=== PATIENT | female | born 2000 | race Two or more races ===

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

== ENCOUNTER 2018-12-30 22:50 | Emergency (ER) | payer MEDICAID ==
[2018-12-30 23:29] VITALS: BP 113/71
--- NOTE | 2018-12-30 23:47 | EDM.PDOC ---
ED HPI GENERAL MEDICAL PROBLEM - General Chief Complaint: GAMING HOST Problem Stated Complaint: BLEEDING NOT Time Seen by Provider: 12/30/18 22:50 Source of Information: Reports: Patient, Family History Limitations: Reports: No Limitations - History of Present Illness INITIAL COMMENTS - FREE TEXT/NARRATIVE: 18 y.o.w.f cam to the ed 4 days after after she last nl menstrual period 2018, took plan B 2-3 days ago, period started yesterday. No pain, no N/V/D or any other acute medical issues. BP 113/71 Pulse 77 RR 15 Pulse ox 100% on RA Temp 36.6 Onset Date: 12/29/18 Onset Time: 09:00 Duration: Day(s):, Constant Location: Reports: Pelvis Quality: Reports: Same as Previous Episode Severity: Moderate Improves with: Reports: None Worsens with: Reports: None Context: Reports: Other (last nl menstrual peiod 12/03/2018, took plan B 2-3 days ago, period started yesterday) Associated Symptoms: Reports: No Other Symptoms - Related Data Allergies Allergy/AdvReac Type Severity Reaction Status Date / Time acetaminophen [From Tylenol] Allergy Mild Hives Verified 12/30/18 23:10 Home Meds: Home Meds NK [No Known Home Meds] 12/30/18 [History] Past Medical History - Past Health History Medical/Surgical History: Denies Medical/Surgical History 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 Psychiatric History: Reports: ADHD, Addiction, Anxiety, Bipolar, Depression, Emotional Problems, Mood Swings, PTSD, Schizophrenia, Suicide Attempt - Infectious Disease History Infectious Disease History: Reports: Chicken Pox - Past Surgical History HEENT Surgical History: Reports: Other (See Below) Other HEENT Surgeries/Procedures: states that she had stitches at her lip and nose due to a dog bite. Social & Family History - Family History Family Medical History: Noncontributory Respiratory: Reports: Asthma Psychiatric: Reports: Anxiety, Depression - Tobacco Use Smoking Status *Q: Former Smoker Years of Tobacco use: 7 Packs/Tins Daily: 0.3 Used Tobacco, but Quit: No - Caffeine Use Caffeine Use: Reports: Coffee, Soda - Recreational Drug Use Recreational Drug Use: No ED ROS GENERAL - Review of Systems Review Of Systems: See Below Constitutional: Reports: No Symptoms HEENT: Reports: No Symptoms Respiratory: Reports: No Symptoms Cardiovascular: Reports: No Symptoms Endocrine: Reports: No Symptoms GI/Abdominal: Reports: No Symptoms : Reports: No Symptoms Musculoskeletal: Reports: No Symptoms Skin: Reports: No Symptoms Neurological: Reports: No Symptoms Psychiatric: Reports: No Symptoms Hematologic/Lymphatic: Reports: No Symptoms Immunologic: Reports: No Symptoms ED EXAM - Physical Exam Exam: See Below Exam Limited By: No Limitations General Appearance: Alert, WD/WN, No Apparent Distress Eye Exam: Bilateral Eye: Normal Inspection Ears: Normal External Exam Nose: Normal Inspection Throat/Mouth: Other (lip pircing) Head: Atraumatic, Normocephalic Neck: Normal Inspection Respiratory/Chest: No Respiratory Distress Cardiovascular: Normal Peripheral Pulses GI/Abdominal Exam: Normal Bowel Sounds Rectal Exam: Deferred (Female) Exam: Deferred for Placenta Previa Back Exam: Normal Inspection Extremities: Normal Inspection Neurological: Alert, Oriented, CN II-XII Intact, Normal Cognition, Normal Gait Psychiatric: Normal Affect, Normal Mood Skin Exam: Warm, Dry, Normal Color Lymphatic: No Adenopathy Course - Vital Signs Text/Narrative:: 18 y.o.w.f cam to the ed 4 days after after she last nl menstrual period 2018, took plan B 2-3 days ago, period started yesterday. No pain, no N/V/D or any other acute medical issues. BP 113/71 Pulse 77 RR 15 Pulse ox 100% on RA Temp 36.6 PE; WNWD WF with on her menstrual period. pelvic exam was deferred. Impression: test neg Tx: none Took Plan B 2-3 days ago Reexam: Nl menstrual period coming earlier due to using Plan B Plan: D/C with instruction Last Recorded V/S: Last Vital Signs Temp 36.9 C 12/30/18 22:55 Pulse 71 12/30/18 22:55 Resp 15 12/30/18 22:55 BP 113/71 12/30/18 22:55 Pulse Ox 99 12/30/18 22:55 - Orders/Labs/Meds Labs: Laboratory Tests 12/30/18 12/30/18 Range/Units 23:01 23:01 Urine Color Yellow (YELLOW) Urine Appearance Slightly cloudy (CLEAR) Urine pH 6.0 (5.0-6.5) Ur Specific [place] 1.030 H (1.010-1.025) Urine Protein Negative (NEGATIVE) mg/dL Urine Glucose (UA) Normal (NORMAL) mg/dL Urine Ketones Negative (NEGATIVE) mg/dL Urine Occult Blood Large H (NEGATIVE) Urine Nitrite Negative (NEGATIVE) Urine Bilirubin Negative (NEGATIVE) Urine Urobilinogen 1 H (NEGATIVE) mg/dL Ur Leukocyte Esterase Negative (NEGATIVE) Urine RBC 5-10 H (0-5) Urine WBC 0-5 (0-5) Ur Squamous Epith Cells Moderate H (NS,R,O) Urine Bacteria Few H (NS) Urine HCG, Qual Negative (NEGATIVE) Departure - Departure Time of Disposition: 23:42 Disposition: Home, Self-Care 01 Condition: Good Clinical Impression: Menstrual periods, abnormal - Discharge Information Instructions: Emergency Contraception Referrals: PCP,None [Primary Care Provider] - Forms: ED Department Discharge Additional Instructions: This is most likely your Nl menstrual period starting early due to using plan B , which is influencing your menstruation. Please f/u with your GAMING HOST if needed.
== END 2018-12-30 23:51 | disposition home or self-care (01) ==
LOC: FB.ED 22:50
DX: N92.6 Irregular menstruation, unspecified (principal); Z88.8 Allergy status to other drugs, medicaments and biological substances; Z87.891 Personal history of nicotine dependence
CPT/HCPCS: 81001; 81025; 99284

== ENCOUNTER 2020-04-26 19:40 | Emergency (ER) | payer SELFPAY ==
[2020-04-26 19:51] VITALS: BP 127/67; PULSE 86
--- NOTE | 2020-04-26 20:00 | EDM.PDOC ---
ED HPI GENERAL MEDICAL PROBLEM - General Chief Complaint: Allergic Reaction Stated Complaint: ALLERGIC REACTION Time Seen by Provider: 04/26/20 19:55 Source of Information: Reports: Patient History Limitations: Reports: No Limitations - History of Present Illness INITIAL COMMENTS - FREE TEXT/NARRATIVE: Patient presented to the ED because of an insect bite on the right intraorbital area and left leg. She took benadryl but it is still swollen. 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 Psychiatric History: Reports: ADHD, Addiction, Anxiety, Bipolar, Depression, Emotional Problems, Mood Swings, PTSD, Schizophrenia, Suicide Attempt - Infectious Disease History Infectious Disease History: Reports: Chicken Pox - Past Surgical History HEENT Surgical History: Reports: Other (See Below) Other HEENT Surgeries/Procedures: states that she had stitches at her lip and nose due to a dog bite. Social & Family History - Family History Family Medical History: Noncontributory Respiratory: Reports: Asthma Psychiatric: Reports: Anxiety, Depression - Caffeine Use Caffeine Use: Reports: Coffee, Soda ED ROS ALLERGIC REACTION - Review of Systems Review Of Systems: See Below Constitutional: Reports: No Symptoms HEENT: Reports: No Symptoms Respiratory: Reports: No Symptoms Cardiovascular: Reports: No Symptoms GI/Abdominal: Reports: No Symptoms Musculoskeletal: Reports: No Symptoms Skin: Reports: No Symptoms Neurological: Reports: No Symptoms Psychiatric: Reports: No Symptoms ED EXAM GENERAL NO PERIP PULSE - Physical Exam Exam: See Below Exam Limited By: No Limitations General Appearance: Alert, No Apparent Distress Ears: Normal External Exam, Normal Canal Throat/Mouth: Normal Inspection, Normal Lips Head: Atraumatic, Normocephalic Respiratory/Chest: No Respiratory Distress, Lungs Clear, Normal Breath Sounds, No Accessory Muscle Use Cardiovascular: Normal Peripheral Pulses, Regular Rate, Rhythm, No Edema, No Gallop GI/Abdominal: Normal Bowel Sounds, Soft, Non-Tender, No Organomegaly Extremities: Normal Inspection, Normal Range of Motion Skin Exam: Warm, Other (swelling over the right infraorbital area, wheals on left leg.) Course - Vital Signs Text/Narrative:: reassurance Last Recorded V/S: Last Vital Signs Temp 36.8 C 04/26/20 19:50 Pulse 86 04/26/20 19:50 Resp 17 04/26/20 19:50 BP 127/67 04/26/20 19:50 Pulse Ox 100 04/26/20 19:50 Departure - Departure Time of Disposition: 20:00 Disposition: Home, Self-Care 01 Condition: Good Clinical Impression: Insect bite - Discharge Information Prescriptions: predniSONE [Prednisone] 20 mg PO DAILY #5 tablet Instructions: Insect Bite, Adult Referrals: PCP,None [Primary Care Provider] - Forms: ED Department Discharge Additional Instructions: Please read discharge instructions on insect bite apply ice take benadryl 25 mg every 4-6 hours as needed for itching prednisone 20 mg every morning for 5 days Follow up as needed Sepsis Event Note (ED) - Evaluation Sepsis Screening Result: No Definite Risk - Focused Exam Vital Signs: Vital Signs Temp Pulse Resp BP Pulse Ox 04/26/20 19:50 36.8 C 86 17 127/67 100
== END 2020-04-26 20:05 | disposition home or self-care (01) ==
LOC: FB.ED 19:40
DX: S00.86XA Insect bite (nonvenomous) of other part of head, initial encounter (principal); S80.862A Insect bite (nonvenomous), left lower leg, initial encounter; Z88.6 Allergy status to analgesic agent; W57.XXXA Bitten or stung by nonvenomous insect and other nonvenomous arthropods, initial encounter
CPT/HCPCS: 99281

== ENCOUNTER 2020-12-04 22:47 | Emergency (ER) | payer MEDICAID ==
--- NOTE | 2020-12-04 23:24 | EDM.PDOC ---
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 Psychiatric History: Reports: ADHD, Addiction, Anxiety, Bipolar, Depression, Emotional Problems, Mood Swings, PTSD, Schizophrenia, Suicide Attempt - Infectious Disease History Infectious Disease History: Reports: Chicken Pox - Past Surgical History HEENT Surgical History: Reports: Other (See Below) Other HEENT Surgeries/Procedures: states that she had stitches at her lip and nose due to a dog bite. Social & Family History - Family History Family Medical History: No Pertinent Family History Respiratory: Reports: Asthma Psychiatric: Reports: Anxiety, Depression - Caffeine Use Caffeine Use: Reports: Coffee, Soda Course - Vital Signs Last Recorded V/S: Last Vital Signs Temp 36.7 C 12/04/20 22:50 Pulse 104 H 12/04/20 22:50 Resp 15 12/04/20 22:50 BP 120/55 L 12/04/20 22:50 Pulse Ox 98 12/04/20 22:50 - Orders/Labs/Meds Orders: Active Orders 24 hr Category Date Time Status Abdomen Pelvis w Cont [CT] Stat Exams 12/04/20 23:14 Ordered AMYLASE [CHEM] Stat Lab 12/04/20 23:14 Ordered CBC WITH AUTO DIFF [HEME] Stat Lab 12/04/20 23:14 Ordered CHLAMYDIA/GC AMPLIFICATION Routine Lab 12/04/20 23:11 Ordered COMPREHENSIVE METABOLIC PN,CMP [CHEM] Stat Lab 12/04/20 23:14 Ordered LIPASE [CHEM] Stat Lab 12/04/20 23:14 Ordered Sodium Chloride 0.9% [Normal Saline] 1,000 ml Med 12/04/20 23:15 Active IV ASDIRECTED Medication Orders Sodium Chloride (Normal Saline) 1,000 mls @ 999 mls/hr IV ASDIRECTED ROMELIA Labs: Laboratory Tests 12/04/20 12/04/20 Range/Units 22:55 22:55 Urine Color Yellow (YELLOW) Urine Appearance Slightly cloudy (CLEAR) Urine pH 6.5 (5.0-6.5) Ur Specific [place] 1.010 (1.010-1.025) Urine Protein Negative (NEGATIVE) mg/dL Urine Glucose (UA) Normal (NORMAL) mg/dL Urine Ketones Negative (NEGATIVE) mg/dL Urine Occult Blood Negative (NEGATIVE) Urine Nitrite Negative (NEGATIVE) Urine Bilirubin Negative (NEGATIVE) Urine Urobilinogen 1 H (NEGATIVE) mg/dL Ur Leukocyte Esterase Large H (NEGATIVE) Urine RBC 5-10 H (0-5) Urine WBC 10-20 H (0-5) Ur Squamous Epith Cells Moderate H (NS,R,O) Urine Bacteria Few H (NS) Urine HCG, Qual Negative (NEGATIVE) Meds: Medications Generic Name Dose Route Start Last Admin Trade Name Freq PRN Reason Stop Dose Admin Sodium Chloride 1,000 mls @ 999 mls/hr 12/04/20 23:15 Normal Saline IV ASDIRECTED ROMELIA Discontinued Medications Generic Name Dose Route Start Last Admin Trade Name Freq PRN Reason Stop Dose Admin Cephalexin 500 mg 12/04/20 23:25 Cephalexin 500 Mg Cap PO 12/04/20 23:26 NOW STA Departure - Departure Time of Disposition: 23:15 Disposition: Home, Self-Care 01 Condition: Good - Discharge Information Prescriptions: cephALEXin [Keflex] 500 mg PO Q8H #30 cap Referrals: David Pedroza MD [Primary Care Provider] - Forms: ED Department Discharge Sepsis Event Note (ED) - Evaluation Sepsis Screening Result: No Definite Risk - Focused Exam Vital Signs: Vital Signs Temp Pulse Resp BP Pulse Ox 12/04/20 22:50 36.7 C 104 H 15 120/55 L 98 - My Orders Last 24 Hours: My Active Orders 12/04/20 23:11 CHLAMYDIA/GC AMPLIFICATION Routine 12/04/20 23:14 Abdomen Pelvis w Cont [CT] Stat AMYLASE [CHEM] Stat CBC WITH AUTO DIFF [HEME] Stat COMPREHENSIVE METABOLIC PN,CMP [CHEM] Stat LIPASE [CHEM] Stat 12/04/20 23:15 Sodium Chloride 0.9% [Normal Saline] 1,000 ml IV ASDIRECTED - Assessment/Plan Last 24 Hours: My Active Orders 12/04/20 23:11 CHLAMYDIA/GC AMPLIFICATION Routine 12/04/20 23:14 Abdomen Pelvis w Cont [CT] Stat AMYLASE [CHEM] Stat CBC WITH AUTO DIFF [HEME] Stat COMPREHENSIVE METABOLIC PN,CMP [CHEM] Stat LIPASE [CHEM] Stat 12/04/20 23:15 Sodium Chloride 0.9% [Normal Saline] 1,000 ml IV ASDIRECTED
[2020-12-04] MEDS: Sodium Chloride 0.9% 1,000 ML IV SCH (23:30)
--- NOTE | 2020-12-04 23:58 | EDM.PDOC ---
ED HPI GENERAL MEDICAL PROBLEM - General Chief Complaint: Genitourinary Problem Stated Complaint: SIDE PAIN Time Seen by Provider: 12/04/20 22:50 Source of Information: Reports: Patient History Limitations: Reports: No Limitations - History of Present Illness INITIAL COMMENTS - FREE TEXT/NARRATIVE: Patient presented to the ED because of Left Lower Quadrat pain which started 2 d ays ago. The pain is sharp and cramping,7/10. there is no n/v/d. There is no fever,chills or urinary symptoms. 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 Psychiatric History: Reports: ADHD, Addiction, Anxiety, Bipolar, Depression, Emotional Problems, Mood Swings, PTSD, Schizophrenia, Suicide Attempt - Infectious Disease History Infectious Disease History: Reports: Chicken Pox - Past Surgical History HEENT Surgical History: Reports: Other (See Below) Other HEENT Surgeries/Procedures: states that she had stitches at her lip and nose due to a dog bite. Social & Family History - Family History Family Medical History: No Pertinent Family History Respiratory: Reports: Asthma Psychiatric: Reports: Anxiety, Depression - Caffeine Use Caffeine Use: Reports: Coffee, Soda ED ROS GENERAL - Review of Systems Review Of Systems: See Below Constitutional: Reports: No Symptoms HEENT: Reports: No Symptoms Respiratory: Reports: No Symptoms Cardiovascular: Reports: No Symptoms Endocrine: Reports: No Symptoms GI/Abdominal: Reports: Abdominal Pain : Reports: No Symptoms Musculoskeletal: Reports: No Symptoms Skin: Reports: No Symptoms Neurological: Reports: No Symptoms ED EXAM, GI/ABD - Physical Exam Exam: See Below Exam Limited By: No Limitations General Appearance: Alert, No Apparent Distress Ears: Normal External Exam, Normal Canal Nose: Normal Inspection, Normal Mucosa Throat/Mouth: Normal Inspection, Normal Lips Head: Atraumatic, Normocephalic Neck: Normal Inspection, Supple, Non-Tender, Full Range of Motion Respiratory/Chest: No Respiratory Distress, Lungs Clear, Normal Breath Sounds, No Accessory Muscle Use, Chest Non-Tender Cardiovascular: Normal Peripheral Pulses, Regular Rate, Rhythm, No Edema, No Gallop, No JVD, No Murmur GI/Abdominal Exam: Normal Bowel Sounds, Soft, Other (tenderness LLQ) Back Exam: Normal Inspection Extremities: Normal Inspection Neurological: Alert, Oriented, CN II-XII Intact Course - Vital Signs Text/Narrative:: Labs/CT abd/pelvis result was discussed with patient NS 1 L Bolus Bactrim DS 1 PO x1 Last Recorded V/S: Last Vital Signs Temp 36.7 C 12/04/20 22:50 Pulse 104 H 12/04/20 22:50 Resp 15 12/04/20 22:50 BP 120/55 L 12/04/20 22:50 Pulse Ox 98 12/04/20 22:50 - Orders/Labs/Meds Orders: Active Orders 24 hr Category Date Time Status Abdomen Pelvis w Cont [CT] Stat Exams 12/04/20 23:14 Taken CHLAMYDIA/GC AMPLIFICATION Routine Lab 12/04/20 23:11 Ordered CULTURE URINE [RM] Stat Lab 12/04/20 23:36 Ordered Sodium Chloride 0.9% [Normal Saline] 1,000 ml Med 12/04/20 23:15 Active IV ASDIRECTED Sulfamethoxazole/Trimethoprim [Septra DS] Med 12/05/20 00:33 Stat 1 tab PO NOW STA Medication Orders Sodium Chloride (Normal Saline) 1,000 mls @ 999 mls/hr IV ASDIRECTED ROMELIA Last Admin: 12/04/20 23:30 Dose: 999 mls/hr Documented by: KETAN Labs: Laboratory Tests 12/04/20 12/04/20 12/04/20 Range/Units 22:55 22:55 23:30 WBC 6.0 (3.0-10.3) x10-3/uL RBC 4.45 (3.60-5.20) x10(6)uL Hgb 13.5 (11.4-15.5) g/dL Hct 41.0 (34.2-48.2) % MCV 92.3 (76.7-100.5) fL MCH 30.3 (23.9-33.9) pg MCHC 32.9 (31.9-34.8) g/dL RDW 13.6 (12.3-16.5) % Plt Count 186 (151-488) x10(3)uL MPV 10.7 (7.1-12.4) fL Neut % (Auto) 63.5 (30.8-76.2) % Lymph % (Auto) 20.5 (18.4-52.1) % [place] % (Auto) 10.1 (4.4-15.7) % Eos % (Auto) 5.1 (0.6-8.1) % Baso % (Auto) 0.8 (0.2-1.5) % Neut # (Auto) 3.8 (1.5-6.3) x10-3/uL Lymph # (Auto) 1.2 (1.0-4.4) x10-3/uL [place] # (Auto) 0.6 (0.3-1.0) x10-3/uL Eos # (Auto) 0.3 (0.0-0.8) x10-3/uL Baso # (Auto) 0.0 (0.0-0.1) x10-3/uL Sodium (135-145) mmol/L Potassium (3.5-5.3) mmol/L Chloride (100-110) mmol/L Carbon Dioxide (21-32) mmol/L BUN (7-18) mg/dL Creatinine (0.55-1.02) mg/dL Est Cr Clr Drug Dosing Estimated GFR (MDRD) (>60) BUN/Creatinine Ratio (9-20) Glucose (80-116) mg/dL Calcium (8.6-10.2) mg/dL Total Bilirubin (0.1-1.3) mg/dL AST (5-25) IU/L ALT (12-36) U/L Alkaline Phosphatase (56-112) IU/L Total Protein (6.0-8.0) g/dL Albumin (3.5-5.2) g/dL Globulin g/dL Albumin/Globulin Ratio Amylase (25-115) U/L Lipase (73-393) U/L Urine Color Yellow (YELLOW) Urine Appearance Slightly cloudy (CLEAR) Urine pH 6.5 (5.0-6.5) Ur Specific [place] 1.010 (1.010-1.025) Urine Protein Negative (NEGATIVE) mg/dL Urine Glucose (UA) Normal (NORMAL) mg/dL Urine Ketones Negative (NEGATIVE) mg/dL Urine Occult Blood Negative (NEGATIVE) Urine Nitrite Negative (NEGATIVE) Urine Bilirubin Negative (NEGATIVE) Urine Urobilinogen 1 H (NEGATIVE) mg/dL Ur Leukocyte Esterase Large H (NEGATIVE) Urine RBC 5-10 H (0-5) Urine WBC 10-20 H (0-5) Ur Squamous Epith Cells Moderate H (NS,R,O) Urine Bacteria Few H (NS) Urine HCG, Qual Negative (NEGATIVE) 12/04/20 12/04/20 Range/Units 23:30 23:30 WBC (3.0-10.3) x10-3/uL RBC (3.60-5.20) x10(6)uL Hgb (11.4-15.5) g/dL Hct (34.2-48.2) % MCV (76.7-100.5) fL MCH (23.9-33.9) pg MCHC (31.9-34.8) g/dL RDW (12.3-16.5) % Plt Count (151-488) x10(3)uL MPV (7.1-12.4) fL Neut % (Auto) (30.8-76.2) % Lymph % (Auto) (18.4-52.1) % [place] % (Auto) (4.4-15.7) % Eos % (Auto) (0.6-8.1) % Baso % (Auto) (0.2-1.5) % Neut # (Auto) (1.5-6.3) x10-3/uL Lymph # (Auto) (1.0-4.4) x10-3/uL [place] # (Auto) (0.3-1.0) x10-3/uL Eos # (Auto) (0.0-0.8) x10-3/uL Baso # (Auto) (0.0-0.1) x10-3/uL Sodium 140 (135-145) mmol/L Potassium 4.2 (3.5-5.3) mmol/L Chloride 103 (100-110) mmol/L Carbon Dioxide 25 (21-32) mmol/L BUN 11 (7-18) mg/dL Creatinine 0.8 (0.55-1.02) mg/dL Est Cr Clr Drug Dosing TNP Estimated GFR (MDRD) > 60 (>60) BUN/Creatinine Ratio 13.8 (9-20) Glucose 82 (80-116) mg/dL Calcium 8.9 (8.6-10.2) mg/dL Total Bilirubin 0.4 (0.1-1.3) mg/dL AST 14 (5-25) IU/L ALT 18 (12-36) U/L Alkaline Phosphatase 80 (56-112) IU/L Total Protein 7.8 (6.0-8.0) g/dL Albumin 4.6 (3.5-5.2) g/dL Globulin 3.2 g/dL Albumin/Globulin Ratio 1.4 Amylase 66 (25-115) U/L Lipase 171 (73-393) U/L Urine Color (YELLOW) Urine Appearance (CLEAR) Urine pH (5.0-6.5) Ur Specific [place] (1.010-1.025) Urine Protein (NEGATIVE) mg/dL Urine Glucose (UA) (NORMAL) mg/dL Urine Ketones (NEGATIVE) mg/dL Urine Occult Blood (NEGATIVE) Urine Nitrite (NEGATIVE) Urine Bilirubin (NEGATIVE) Urine Urobilinogen (NEGATIVE) mg/dL Ur Leukocyte Esterase (NEGATIVE) Urine RBC (0-5) Urine WBC (0-5) Ur Squamous Epith Cells (NS,R,O) Urine Bacteria (NS) Urine HCG, Qual (NEGATIVE) Meds: Medications Generic Name Dose Route Start Last Admin Trade Name Freq PRN Reason Stop Dose Admin Sodium Chloride 1,000 mls @ 999 mls/hr 12/04/20 23:15 12/04/20 23:30 Normal Saline IV 999 mls/hr ASDIRECTED ROMELIA Administration Discontinued Medications Generic Name Dose Route Start Last Admin Trade Name Freq PRN Reason Stop Dose Admin Cephalexin 500 mg 12/04/20 23:25 Cephalexin 500 Mg Cap PO 12/04/20 23:26 NOW STA Iopamidol 100 ml 12/04/20 23:55 12/05/20 00:13 Iopamidol 755 Mg/Ml 100 Ml Bottle IV 12/04/20 23:56 75 ml . DIRECTED ONE Administration Departure - Departure Time of Disposition: 01:15 Disposition: Home, Self-Care 01 Condition: Good Clinical Impression: UTI (urinary tract infection), UTI, Urinary tract infectious disease - Discharge Information Prescriptions: Sulfamethoxazole/Trimethoprim [Bactrim Ds Tablet] 1 each PO BID #6 tablet Referrals: David Pedroza MD [Primary Care Provider] - Forms: ED Department Discharge Additional Instructions: Please read discharge instructions on UTI Increase oral fluids Bactrim DS 1 tablet twice daily for 3 days Follow up urine culture result Sepsis Event Note (ED) - Evaluation Sepsis Screening Result: No Definite Risk - Focused Exam Vital Signs: Vital Signs Temp Pulse Resp BP Pulse Ox 12/04/20 22:50 36.7 C 104 H 15 120/55 L 98 - My Orders Last 24 Hours: My Active Orders 12/04/20 23:11 CHLAMYDIA/GC AMPLIFICATION Routine 12/04/20 23:14 Abdomen Pelvis w Cont [CT] Stat 12/04/20 23:15 Sodium Chloride 0.9% [Normal Saline] 1,000 ml IV ASDIRECTED 12/04/20 23:36 CULTURE URINE [RM] Stat 12/05/20 00:33 Sulfamethoxazole/Trimethoprim [Septra DS] 1 tab PO NOW STA - Assessment/Plan Last 24 Hours: My Active Orders 12/04/20 23:11 CHLAMYDIA/GC AMPLIFICATION Routine 12/04/20 23:14 Abdomen Pelvis w Cont [CT] Stat 12/04/20 23:15 Sodium Chloride 0.9% [Normal Saline] 1,000 ml IV ASDIRECTED 12/04/20 23:36 CULTURE URINE [RM] Stat 12/05/20 00:33 Sulfamethoxazole/Trimethoprim [Septra DS] 1 tab PO NOW STA
[2020-12-05] MEDS: Iopamidol 755 Mg/ML 100 ML Bottle IV ONE (00:13)
[2020-12-05] MEDS: Cephalexin 500 MG Cap PO STA (00:35)
[2020-12-05 00:37] VITALS: BP 119/49; PULSE 72
[2020-12-05] MEDS: Sulfamethoxazole/Trimethoprim 800-160 MG Tab PO STA (00:46)
[2020-12-07 16:09] LABS: CHLAMYDIA TRACHOMATIS, NAA Negative (Negative); NEISSERIA GONORRHOEAE, NAA Negative (Negative)
== END 2020-12-05 01:05 | disposition home or self-care (01) ==
LOC: FB.ED 22:47
DX: N39.0 Urinary tract infection, site not specified (principal)
CPT/HCPCS: 36415; 74177; 80053; 81001; 81025; 82150; 83690; 85025; 87086; 87491; 87591; 99284; A9270; J7030; Q9967

== ENCOUNTER 2021-04-26 05:24 | Emergency (ER) | payer OTHER, MEDICAID ==
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
[2021-04-26 06:16] VITALS: BP 135/76; PULSE 100
== END 2021-04-26 06:30 | disposition home or self-care (01) ==
LOC: FB.ED 05:24
DX: S01.81XA Laceration without foreign body of other part of head, initial encounter (principal); S01.312A Laceration without foreign body of left ear, initial encounter; S01.511A Laceration without foreign body of lip, initial encounter; S13.4XXA Sprain of ligaments of cervical spine, initial encounter; S20.212A Contusion of left front wall of thorax, initial encounter; Z72.0 Tobacco use; V89.2XXA Person injured in unspecified motor-vehicle accident, traffic, initial encounter
CPT/HCPCS: 99283

== ENCOUNTER 2021-12-31 08:17 | Emergency (ER) | payer MEDICAID ==
[2021-12-31] MEDS ORDERED: Sodium Chloride 0.9% 1,000 ML IV SCH (08:30)
[2021-12-31 09:13] VITALS: BP 110/70; PULSE 76
== END 2021-12-31 08:47 ==
LOC: FB.ED 08:17
DX: O62.9 Abnormality of forces of labor, unspecified (principal); Z3A.21 21 weeks gestation of pregnancy
CPT/HCPCS: 99284; J7030